=== PATIENT | female | born 1965 | race Caucasian/White ===

== ENCOUNTER 2018-09-05 09:04 | Inpatient (IN) | payer OTHER ==
[~2018-09-05] VITALS: Ht 165.1 cm; Wt 77.1 kg
[~2018-09-05 09:04] MED LIST: CRESTOR20 MG PO; PROZAC10 MG PO
[2018-09-12] MEDS ORDERED: INTESTINEX680 M1 PO ×2 (11:17)
[2018-09-12] MEDS ORDERED: ULTRACET PO ×2 (11:17)
[2018-09-12] MEDS ORDERED: OMEPRAZOLE20 MG PO ×2 (11:17)
== END 2018-09-12 15:15 | disposition home or self-care (01) | DRG 331 ==
LOC: SURG 09-09 05:55 → O/R 09-09 05:55 → RECOVERY 09-09 07:00 → SURG 09-09 10:18 → RECOVERY 09-09 12:20 → SURG 09-12 15:15
PROVIDERS: ADMIT Surgery
PROC: 07TB4ZZ Resection of Mesenteric Lymphatic, Percutaneous Endoscopic Approach (ICD-10-PCS; 2018-09-09)
PROC: 0WQF4ZZ Repair Abdominal Wall, Percutaneous Endoscopic Approach (ICD-10-PCS; 2018-09-09)
PROC: 0DTG4ZZ Resection of Left Large Intestine, Percutaneous Endoscopic Approach (ICD-10-PCS; principal; 2018-09-09 07:00)
DX: C18.4 Malignant neoplasm of transverse colon (principal); R73.01 Impaired fasting glucose; D64.89 Other specified anemias; N20.0 Calculus of kidney; E78.00 Pure hypercholesterolemia, unspecified; K42.9 Umbilical hernia without obstruction or gangrene

== ENCOUNTER 2018-09-08 06:05 | Day surgery (SDC) | payer OTHER | END 2018-09-08 13:25 | disposition home or self-care (01) | LOC: AMB-ENDOS 06:05 | DX: C18.6 Malignant neoplasm of descending colon (principal) ==